=== PATIENT | female | born 1965 | race Caucasian/White ===

== ENCOUNTER 2018-08-19 14:16 | Emergency (ER) | payer OTHER, SELFPAY ==
[2018-08-19 14:24] VITALS: BP 140/76; PULSE 79; RESP 18; TEMP 36.6; O2SAT 98
--- NOTE | 2018-08-19 14:42 | ED.ABDPAIN ---
HPI - Abdominal Pain <Jeniffer Santos PA-C - Last Filed: 08/19/18 20:58> General Chief Complaint: Abdominal Pain Stated Complaint: KIDNEY STONES Time Seen by Provider: 08/19/18 14:23 Source: patient Mode of arrival: ambulatory Limitations: no limitations History of Present Illness HPI narrative: This 52-year-old female comes to ED due to concern for recurrent kidney stones, requesting KUB. She states that she has history of multiple stones in the past, and for the last couple of months has had intermittent right flank pain and ?twinges?, like stones may be passing. She states that she did need ureteroscopy in the past to retrieve 1 of the larger stones. She states that currently she has mild discomfort in the right flank and groin area. She denies any fever, nausea, vomiting, other abdominal pain, hematuria or dysuria. She is going about her usual activities without any other new symptoms. She states that she does have a urology appointment coming up and was unable to get an order for imaging from PCP or walk-in clinic so came here. She denies any possibility of as has had a vasectomy and she is perimenopausal. She has been on numerous herbal medications working with a telecommunications engineer, thinks perhaps timing could correlate with starting some of these but not sure. Related Data Home Medications Medication Instructions Recorded Confirmed magnesium 30 mg PO DAILY 08/19/18 08/19/18 multivitamin 1 cap PO DAILY 08/19/18 08/19/18 progesterone micronized 200 mg PO BEDTIME 08/19/18 08/19/18 thyroid (pork) [GEOSPATIAL SYSTEMS INTEGRATOR Thyroid] 180 mg PO DAILY 08/19/18 08/19/18 vitamin B comp and C no.3 [B 1 cap PO DAILY 08/19/18 08/19/18 Complex Plus Vitamin C] zinc 50 mg PO DAILY 08/19/18 08/19/18 Allergies Allergy/AdvReac Type Severity Reaction Status Date / Time Sulfa (Sulfonamide Allergy Unknown Verified 02/14/18 15:13 Antibiotics) [SULFA (SULFONAMIDE ANTIBIOTICS)] Review of Systems <Jeniffer Santos PA-C - Last Filed: 08/19/18 20:58> Review of Systems ROS Unobtainable: All systems reviewed & are unremarkable except as noted in HPI and below PFSH <Jeniffer Santos PA-C - Last Filed: 08/19/18 20:58> Medical History (Updated 08/19/18 @ 16:18 by Jeniffer Santos PA-C) History of kidney stones (Chronic) Celiac disease (Chronic) Hypothyroidism (Chronic) Surgical History (Updated 08/19/18 @ 15:04 by Jeniffer Santos PA-C) Status post shoulder surgery (Resolved) Family History (Updated 10/20/16 @ 00:00 by Conversion Provider) Father Bile duct cancer Hypertension High cholesterol Social History Smoking Status: Never smoker Family History (Updated 10/20/16 @ 00:00 by Conversion Provider) Father Bile duct cancer Hypertension High cholesterol Social History Smoking Status: Never smoker Exam <Jeniffer Santos PA-C - Last Filed: 08/19/18 20:58> Narrative Exam Narrative: GENERAL APPEARANCE: Patient sitting comfortably, in no distress. Appears well. HEENT: PERRL, EOMI, normal oropharynx NECK: Supple LUNGS: Clear to auscultation bilaterally. HEART: Rate and rhythm regular without murmur, normal S1 and S2, no S3 or S4. ABDOMEN: Soft, NT, ND, +BS x 4 quadrants, very minimal right CVAT, none on the left EXTREMITIES: No cyanosis or edema Initial Vital Signs Initial Vital Signs: Vital Signs Temperature 97.9 F 08/19/18 14:24 Pulse Rate 79 08/19/18 14:24 Respiratory Rate 18 08/19/18 14:24 Blood Pressure 140/76 08/19/18 14:24 Pulse Oximetry 98 08/19/18 14:24 <Marina Arce MD - Last Filed: 08/21/18 08:59> Initial Vital Signs Initial Vital Signs: Vital Signs Temperature 97.9 F 08/19/18 14:24 Pulse Rate 79 08/19/18 14:24 Respiratory Rate 18 08/19/18 14:24 Blood Pressure 140/76 08/19/18 14:24 Pulse Oximetry 98 08/19/18 14:24 Course <Jeniffer Santos PA-C - Last Filed: 08/19/18 20:58> Orders Ordered: ED Orders 08/19/18 15:16 CT kidney ureter bladder (KUB) Stat Vital Signs - 8 hr 08/19/18 14:24 08/19/18 16:34 08/19/18 16:40 Temperature 97.9 F Pulse Rate 79 72 81 Respiratory Rate 18 13 16 Blood Pressure 140/76 125/71 Blood Pressure [Right Arm] 125/71 Pulse Oximetry 98 98 98 <Marina Arce MD - Last Filed: 08/21/18 08:59> Orders Ordered: ED Orders 08/19/18 15:16 CT kidney ureter bladder (KUB) Stat Vital Signs - 8 hr 08/19/18 14:24 08/19/18 16:34 08/19/18 16:40 Temperature 97.9 F Pulse Rate 79 72 81 Respiratory Rate 18 13 16 Blood Pressure 140/76 125/71 Blood Pressure [Right Arm] 125/71 Pulse Oximetry 98 98 98 MDM - Abdominal Pain <Jeniffer Santos PA-C - Last Filed: 08/19/18 20:58> Lab Data Point of care testing: Urine Dip Bedside Urine Glucose Negative Bedside Urine Bilirubin - Negative Bedside Urine Ketone - Negative Urine Specific [employer] 1.025 Bedside Urine Occult Blood - Negative Bedside Urine pH 6.0 Bedside Urine Protein - Negative Bedside Urine Urobilinogen - Negative Bedside Urine Nitrite - Negative Bedside Urine Leukocytes - Negative Esterase Imaging Data KUB CT: Radiologist's impression: [place] [address] CT Scan Report Signed Patient: Marcia Villa#: [id number] : 1965Acct:[id number] Age/Sex: 52 / FDate of Service: 08/19/18 Loc: ED Accession Number: [id number] Procedure: CT kidney ureter bladder (KUB) Ordering Provider: Jeniffer Santos P.A-C PROCEDURE: CT KIDNEY URETER BLADDER (KUB) INDICATIONS: R. flank discomfort, h/o stones TECHNIQUE: Noncontrast 5 mm thick sections acquired from the diaphragms to the symphysis. 5 mm thick coronal and sagittal reformats were then performed. For radiation dose reduction, the following was used: automated exposure control, adjustment of mA and/or kV according to patient size. COMPARISON: None. FINDINGS: Image quality: Excellent. Lung bases: Lung bases are clear. Heart size is normal. Urinary system: Both kidneys are normal in size. No kidney stones. No hydronephrosis or perinephric fat stranding. Both ureters appear non-dilated throughout their expected courses. Bladder wall thickness is normal; no calcified bladder stones. Other solid organs: Liver is normal in size. Gallbladder is contracted. Pancreas is normal in contours. Spleen is normal in size. No adrenal nodules. Peritoneum and bowel: Unenhanced bowel loops demonstrate normal wall thickness and caliber. No free fluid or air. Appendix not seen. No evidence of appendicitis. Nodes and vessels: No retroperitoneal or mesenteric adenopathy by size criteria. Aorta and inferior vena cava are normal in caliber. Abdominal wall: No ventral hernias. Pelvis: No free pelvic fluid. No inguinal hernias or adenopathy. Bones: No suspicious bony lesions. No vertebral body compression fractures. IMPRESSION: 1. No evidence of urinary tract calcification, nor obstruction. 2. Appendix not seen. No evidence of appendicitis. Dictated by: Roger Osuna M.D. on 08/19/2018 at 15:45 Approved by: Roger Osuna M.D. on 08/19/2018 at 15:48 <Marina Arce MD - Last Filed: 08/21/18 08:59> Lab Data Point of care testing: Urine Dip Bedside Urine Glucose Negative Bedside Urine Bilirubin - Negative Bedside Urine Ketone - Negative Urine Specific [employer] 1.025 Bedside Urine Occult Blood - Negative Bedside Urine pH 6.0 Bedside Urine Protein - Negative Bedside Urine Urobilinogen - Negative Bedside Urine Nitrite - Negative Bedside Urine Leukocytes - Negative Esterase Discharge Plan Departure Patient Disposition: Home Clinical Impression: Chronic right flank pain Discharge Date/Time: 08/19/18 16:36 Interventions: ED Discharge Assessment Last Done: 08/19/18 16:34 Instructions: DI for Flank Pain Activity Restrictions/Additional Instructions: Your scan did not show any kidney stone today. This does not mean that you have not passed stones recently. You may want to try an anti-inflammatory such as ibuprofen or Aleve to see if this is helpful with pain as it could be muscular or skeletal pain, but please check with your telecommunications engineer as well regarding any interactions since you take numerous herbal medications. You may also wish to see her if you think there is a correlation between this pain and starting any of those medications. Please follow up with [facility] let them know that you were seen in the emergency room and need to see a different provider there, but have been seen there in the past few years. Please take the disc copy of your scan to your urology appointment. As we talked about, you should be evaluated by the way if you have any acutely worsening symptoms or changes in the interim. Prescriptions: No Action zinc 50 mg tablet 50 mg PO DAILY RF: 0 multivitamin capsule 1 cap PO DAILY RF: 0 magnesium 30 mg tablet 30 mg PO DAILY RF: 0 progesterone micronized 100 mg capsule 200 mg PO BEDTIME RF: 0 B Complex Plus Vitamin C 42-03-07-5-300 mg capsule 1 cap PO DAILY RF: 0 thyroid (pork) [GEOSPATIAL SYSTEMS INTEGRATOR Thyroid] 90 mg tablet 180 mg PO DAILY RF: 0 Referrals: [facility] [Provider Group]
--- NOTE | 2018-08-19 15:05 | ED_ITS ---
HPI - Abdominal Pain <Jeniffer Santos PA-C - Last Filed: 08/19/18 20:58> General Chief Complaint: Abdominal Pain Stated Complaint: KIDNEY STONES Time Seen by Provider: 08/19/18 14:23 Source: patient Mode of arrival: ambulatory Limitations: no limitations History of Present Illness HPI narrative: This 52-year-old female comes to ED due to concern for recurrent kidney stones, requesting KUB. She states that she has history of multiple stones in the past, and for the last couple of months has had intermittent right flank pain and ?twinges?, like stones may be passing. She states that she did need ureteroscopy in the past to retrieve 1 of the larger stones. She states that currently she has mild discomfort in the right flank and groin area. She denies any fever, nausea, vomiting, other abdominal pain, hematuria or dysuria. She is going about her usual activities without any other new symptoms. She states that she does have a urology appointment coming up and was unable to get an order for imaging from PCP or walk-in clinic so came here. She denies any possibility of as has had a vasectomy and she is perimenopausal. She has been on numerous herbal medications working with a heel seat fitter, thinks perhaps timing could correlate with starting some of these but not sure. Related Data Home Medications Medication Instructions Recorded Confirmed magnesium 30 mg PO DAILY 08/19/18 08/19/18 multivitamin 1 cap PO DAILY 08/19/18 08/19/18 progesterone micronized 200 mg PO BEDTIME 08/19/18 08/19/18 thyroid (pork) [COLD ROLLING SUPERVISOR Thyroid] 180 mg PO DAILY 08/19/18 08/19/18 vitamin B comp and C no.3 [B 1 cap PO DAILY 08/19/18 08/19/18 Complex Plus Vitamin C] zinc 50 mg PO DAILY 08/19/18 08/19/18 Allergies Allergy/AdvReac Type Severity Reaction Status Date / Time Sulfa (Sulfonamide Allergy Unknown Verified 02/14/18 15:13 Antibiotics) [SULFA (SULFONAMIDE ANTIBIOTICS)] Review of Systems <Jeniffer Santos PA-C - Last Filed: 08/19/18 20:58> Review of Systems ROS Unobtainable: All systems reviewed & are unremarkable except as noted in HPI and below PFSH <Jeniffer Santos PA-C - Last Filed: 08/19/18 20:58> Medical History (Updated 08/19/18 @ 16:18 by Jeniffer Santos PA-C) History of kidney stones (Chronic) Celiac disease (Chronic) Hypothyroidism (Chronic) Surgical History (Updated 08/19/18 @ 15:04 by Jeniffer Santos PA-C) Status post shoulder surgery (Resolved) Family History (Updated 10/20/16 @ 00:00 by Conversion Provider) Father Bile duct cancer Hypertension High cholesterol Social History Smoking Status: Never smoker Family History (Updated 10/20/16 @ 00:00 by Conversion Provider) Father Bile duct cancer Hypertension High cholesterol Social History Smoking Status: Never smoker Exam <Jeniffer Santos PA-C - Last Filed: 08/19/18 20:58> Narrative Exam Narrative: GENERAL APPEARANCE: Patient sitting comfortably, in no distress. Appears well. HEENT: PERRL, EOMI, normal oropharynx NECK: Supple LUNGS: Clear to auscultation bilaterally. HEART: Rate and rhythm regular without murmur, normal S1 and S2, no S3 or S4. ABDOMEN: Soft, NT, ND, +BS x 4 quadrants, very minimal right CVAT, none on the left EXTREMITIES: No cyanosis or edema Initial Vital Signs Initial Vital Signs: Vital Signs Temperature 97.9 F 08/19/18 14:24 Pulse Rate 79 08/19/18 14:24 Respiratory Rate 18 08/19/18 14:24 Blood Pressure 140/76 08/19/18 14:24 Pulse Oximetry 98 08/19/18 14:24 <Marina Arce MD - Last Filed: 08/21/18 08:59> Initial Vital Signs Initial Vital Signs: Vital Signs Temperature 97.9 F 08/19/18 14:24 Pulse Rate 79 08/19/18 14:24 Respiratory Rate 18 08/19/18 14:24 Blood Pressure 140/76 08/19/18 14:24 Pulse Oximetry 98 08/19/18 14:24 Course <Jeniffer Santos PA-C - Last Filed: 08/19/18 20:58> Orders Ordered: ED Orders 08/19/18 15:16 CT kidney ureter bladder (KUB) Stat Vital Signs - 8 hr 08/19/18 14:24 08/19/18 16:34 08/19/18 16:40 Temperature 97.9 F Pulse Rate 79 72 81 Respiratory Rate 18 13 16 Blood Pressure 140/76 125/71 Blood Pressure [Right Arm] 125/71 Pulse Oximetry 98 98 98 <Marina Arce MD - Last Filed: 08/21/18 08:59> Orders Ordered: ED Orders 08/19/18 15:16 CT kidney ureter bladder (KUB) Stat Vital Signs - 8 hr 08/19/18 14:24 08/19/18 16:34 08/19/18 16:40 Temperature 97.9 F Pulse Rate 79 72 81 Respiratory Rate 18 13 16 Blood Pressure 140/76 125/71 Blood Pressure [Right Arm] 125/71 Pulse Oximetry 98 98 98 MDM - Abdominal Pain <Jeniffer Santos PA-C - Last Filed: 08/19/18 20:58> Lab Data Point of care testing: Urine Dip Bedside Urine Glucose Negative Bedside Urine Bilirubin - Negative Bedside Urine Ketone - Negative Urine Specific [place] 1.025 Bedside Urine Occult Blood - Negative Bedside Urine pH 6.0 Bedside Urine Protein - Negative Bedside Urine Urobilinogen - Negative Bedside Urine Nitrite - Negative Bedside Urine Leukocytes - Negative Esterase Imaging Data KUB CT: Radiologist's impression: [place] [address] CT Scan Report Signed Patient: Marcia Villa#: [id number] : 1965Acct:[id number] Age/Sex: 52 / FDate of Service: 08/19/18 Loc: ED Accession Number: [id number] Procedure: CT kidney ureter bladder (KUB) Ordering Provider: Jeniffer Santos P.A-C PROCEDURE: CT KIDNEY URETER BLADDER (KUB) INDICATIONS: R. flank discomfort, h/o stones TECHNIQUE: Noncontrast 5 mm thick sections acquired from the diaphragms to the symphysis. 5 mm thick coronal and sagittal reformats were then performed. For radiation dose reduction, the following was used: automated exposure control, adjustment of mA and/or kV according to patient size. COMPARISON: None. FINDINGS: Image quality: Excellent. Lung bases: Lung bases are clear. Heart size is normal. Urinary system: Both kidneys are normal in size. No kidney stones. No hydronephrosis or perinephric fat stranding. Both ureters appear non-dilated throughout their expected courses. Bladder wall thickness is normal; no calcified bladder stones. Other solid organs: Liver is normal in size. Gallbladder is contracted. Pancreas is normal in contours. Spleen is normal in size. No adrenal nodules. Peritoneum and bowel: Unenhanced bowel loops demonstrate normal wall thickness and caliber. No free fluid or air. Appendix not seen. No evidence of appendicitis. Nodes and vessels: No retroperitoneal or mesenteric adenopathy by size criteria. Aorta and inferior vena cava are normal in caliber. Abdominal wall: No ventral hernias. Pelvis: No free pelvic fluid. No inguinal hernias or adenopathy. Bones: No suspicious bony lesions. No vertebral body compression fractures. IMPRESSION: 1. No evidence of urinary tract calcification, nor obstruction. 2. Appendix not seen. No evidence of appendicitis. Dictated by: Roger Osuna M.D. on 08/19/2018 at 15:45 Approved by: Roger Osuna M.D. on 08/19/2018 at 15:48 <Marina Arce MD - Last Filed: 08/21/18 08:59> Lab Data Point of care testing: Urine Dip Bedside Urine Glucose Negative Bedside Urine Bilirubin - Negative Bedside Urine Ketone - Negative Urine Specific [place] 1.025 Bedside Urine Occult Blood - Negative Bedside Urine pH 6.0 Bedside Urine Protein - Negative Bedside Urine Urobilinogen - Negative Bedside Urine Nitrite - Negative Bedside Urine Leukocytes - Negative Esterase Discharge Plan Departure Patient Disposition: Home Clinical Impression: Chronic right flank pain Discharge Date/Time: 08/19/18 16:36 Interventions: ED Discharge Assessment Last Done: 08/19/18 16:34 Instructions: DI for Flank Pain Activity Restrictions/Additional Instructions: Your scan did not show any kidney stone today. This does not mean that you have not passed stones recently. You may want to try an anti-inflammatory such as ibuprofen or Aleve to see if this is helpful with pain as it could be muscular or skeletal pain, but please check with your heel seat fitter as well regarding any interactions since you take numerous herbal medications. You may also wish to see her if you think there is a correlation between this pain and starting any of those medications. Please follow up with [facility] let them know that you were seen in the emergency room and need to see a different provider there, but have been seen there in the past few years. Please take the disc copy of your scan to your urology appointment. As we talked about, you should be evaluated by the way if you have any acutely worsening symptoms or changes in the interim. Prescriptions: No Action zinc 50 mg tablet 50 mg PO DAILY RF: 0 multivitamin capsule 1 cap PO DAILY RF: 0 magnesium 30 mg tablet 30 mg PO DAILY RF: 0 progesterone micronized 100 mg capsule 200 mg PO BEDTIME RF: 0 B Complex Plus Vitamin C 61-72-37-5-300 mg capsule 1 cap PO DAILY RF: 0 thyroid (pork) [COLD ROLLING SUPERVISOR Thyroid] 90 mg tablet 180 mg PO DAILY RF: 0 Referrals: [facility] [Provider Group]
--- NOTE | 2018-08-19 15:16 | DI.CT.S_ITS ---
PROCEDURE: CT KIDNEY URETER BLADDER (KUB) INDICATIONS: R. flank discomfort, h/o stones TECHNIQUE: Noncontrast 5 mm thick sections acquired from the diaphragms to the symphysis. 5 mm thick coronal and sagittal reformats were then performed. For radiation dose reduction, the following was used: automated exposure control, adjustment of mA and/or kV according to patient size. COMPARISON: None. FINDINGS: Image quality: Excellent. Lung bases: Lung bases are clear. Heart size is normal. Urinary system: Both kidneys are normal in size. No kidney stones. No hydronephrosis or perinephric fat stranding. Both ureters appear non-dilated throughout their expected courses. Bladder wall thickness is normal; no calcified bladder stones. Other solid organs: Liver is normal in size. Gallbladder is contracted. Pancreas is normal in contours. Spleen is normal in size. No adrenal nodules. Peritoneum and bowel: Unenhanced bowel loops demonstrate normal wall thickness and caliber. No free fluid or air. Appendix not seen. No evidence of appendicitis. Nodes and vessels: No retroperitoneal or mesenteric adenopathy by size criteria. Aorta and inferior vena cava are normal in caliber. Abdominal wall: No ventral hernias. Pelvis: No free pelvic fluid. No inguinal hernias or adenopathy. Bones: No suspicious bony lesions. No vertebral body compression fractures. IMPRESSION: 1. No evidence of urinary tract calcification, nor obstruction. 2. Appendix not seen. No evidence of appendicitis. Dictated by: Roger Osuna M.D. on 08/19/2018 at 15:45 Approved by: Roger Osuna M.D. on 08/19/2018 at 15:48
[2018-08-19 16:34] VITALS: BP 125/71; PULSE 72; RESP 13; O2SAT 98
[2018-08-19 16:40] VITALS: BP 125/71; PULSE 81; RESP 16; O2SAT 98
== END 2018-08-19 16:36 | disposition home or self-care (01) ==
PROVIDERS: Emergency Provider Internal Medicine; Family Provider Physician Assistant; PCP Physician Assistant
DX: R10.9 Unspecified abdominal pain (principal)
CPT/HCPCS: 74176; 81003; 99282; 99284

== ENCOUNTER → 2021-03-09 12:34 | Outpatient (CLI) | payer OTHER, SELFPAY ==
--- NOTE | 2021-03-09 12:37 | DI.RAD.S_ITS ---
PROCEDURE: XR ANKLE RT MIN 3V INDICATIONS: right ankle pain TECHNIQUE: 3 views of the ankle were acquired. COMPARISON: None. FINDINGS: Bones: No fractures or dislocations. Ankle mortise is normally aligned. No suspicious bony lesions. The talar dome demonstrates no babar abnormality. Soft tissues: No tibiotalar joint effusion. Achilles tendon appears normal. IMPRESSION: No significant plain film abnormality is seen. If it would be helpful for clinical management decision making, please consider a dedicated, scheduled ankle MRI for further evaluation (assuming that there is no contraindication). Dictated by: John Paul Foote M.D. on 03/09/2021 at 12:14 Approved by: John Paul Foote M.D. on 03/09/2021 at 12:14
== END ==
PROVIDERS: Family Provider Physician Assistant; PCP Physician Assistant; Referring Provider Nurse Practitioner Family; Visit Provider Nurse Practitioner Family
DX: S99.911A Unspecified injury of right ankle, initial encounter (principal); X58.XXXA Exposure to other specified factors, initial encounter
CPT/HCPCS: 73610

== ENCOUNTER → 2023-06-13 16:22 | Outpatient (CLI) | payer OTHER, SELFPAY ==
--- NOTE | 2023-06-13 16:24 | DI.MRI.S_ITS ---
PROCEDURE: MR KNEE RT WO CON INDICATIONS: Sprain of right knee TECHNIQUE: Noncontrast sagittal PD fast spin echo and T2 fast spin echo with fat saturation, sagittal 3-D FLASH with fat saturation; coronal T1 spin echo and PD fast spin echo with fat saturation, and axial PD fast spin echo with fat saturation through the knee. COMPARISON: [facility], CR, XR KNEE 4+ VIEWS RIGHT, 06/04/2022, 14:31. FINDINGS: Image quality: Excellent. Menisci: There is horizontal tear involving the posterior horn body of the medial meniscus. The lateral meniscus demonstrates normal morphology and internal signal. The meniscal root ligaments appear intact. Cruciate ligaments: The anterior and posterior cruciate ligaments appear intact. Medial structures: The medial collateral ligament appears intact. The semimembranosus tendon insertions and meniscocapsular junction appear intact. Visualized portions of the pes anserinus tendons appear normal. No abnormal bursal fluid. Lateral structures: There is low-grade sprain of the proximal lateral collateral ligament. The biceps femoris tendon appears intact. The popliteus tendon appears normal. Iliotibial band appears normal. Anterior structures: The quadriceps and patellar tendons appear intact. Patellar alignment is normal. No femoral trochlear dysplasia or ventral trochlear prominence. No edema in the infrapatellar fat pad. Nonspecific prepatellar soft tissue swelling. Bones and cartilage: There is an osteochondral lesion in the lateral tibial plateau. There is subchondral edema. No fractures. There is [id number] tricompartmental cartilage thinning and fibrillation. Joint space: There is trace knee joint fluid. There is a tiny Graves's cyst. Normal appearing synovial plicae are incidentally noted. IMPRESSION: 1. Medial meniscus tear involving the posterior horn body. 2. Low-grade sprain of LCL. 3. Osteochondral injury in the lateral tibial plateau. 4. Mild quadriceps tendinitis and patellar tendinitis. 5. [id number] tricompartmental cartilage thinning and fibrillation. Dictated by: Shannen Verduzco M.D. on 06/14/2023 at 9:34 Approved by: Shannen Verduzco M.D. on 06/14/2023 at 9:56
== END ==
PROVIDERS: Family Provider Physician Assistant; PCP Physician Assistant; Referring Provider Orthopaedic Surgery; Visit Provider Orthopaedic Surgery
DX: S83.421A Sprain of lateral collateral ligament of right knee, initial encounter (principal); S83.241A Other tear of medial meniscus, current injury, right knee, initial encounter; M76.51 Patellar tendinitis, right knee; X58.XXXA Exposure to other specified factors, initial encounter
CPT/HCPCS: 73721